=== PATIENT | male | born 1970 | race African-American/Black ===

== ENCOUNTER → 2016-12-08 18:51 | Emergency (ER) | payer OTHER ==
[~2016-12-08 18:51] MED LIST: FLEXERIL10 MG PO; NAPROSYN500 MG PO
== END | disposition home or self-care (01) ==
LOC: CFTX 18:51
DX: K08.89 Other specified disorders of teeth and supporting structures (principal); F17.210 Nicotine dependence, cigarettes, uncomplicated
CPT/HCPCS: 99282